=== PATIENT | male | born 2000 | race Caucasian/White ===

== ENCOUNTER 2022-03-22 09:28 | Inpatient (IN) | payer OTHER, SELFPAY ==
[2022-03-22] VITALS (9 sets, daily range): BP systolic 127–146; BP diastolic 58–85; PULSE 80–115; RESP 13–18; TEMP 36.6–37.4; O2SAT 97–100; BMI 21.2
[2022-03-22 10:38] LABS: MANUAL DIFF FLAG NO
[2022-03-22 10:39] LABS: Basophils Absolute Auto 0.1 X10*3/uL (0.0-0.2); Basophils Percent Auto 0.8 % (0-2); Eosinophils Absolute Auto 0.1 X10*3/uL (0.0-0.4); Eosinophils Percent Auto 0.8 % (0-4); Hemoglobin 8.8 g/dl (14.0-18.0); Imm Gran Abs Auto 0.05 X10*3/uL (0.00-0.03); Imm Gran Pct Auto 0.6 % (0.0-0.4); Lymphocytes Absolute Auto 1.1 X10*3/uL (1.2-4.9); Lymphocytes Percent Auto 12.3 % (20-40); Mean Corpuscular HGB Conc 33.8 g/dl (31.0-36.0); Mean Corpuscular Hemoglobin 30.9 pg (27.0-33.0); Mean Corpuscular Volume 91.2 fL (80.0-98.0); Monocytes Absolute Auto 0.2 X10*3/uL (0.1-1.2); Monocytes Percent Auto 2.5 % (2-11); Neutrophils Absolute Auto 7.5 x10*3/uL (2.0-8.3); Platelet Count 273 X10*3/uL (160-400); Red Blood Count 2.85 X10*6/uL (4.60-5.80); Red Cell Distribution Width 12.3 % (11.0-16.0); White Blood Count 9.1 X10*3/uL (4.8-10.8)
[2022-03-22 11:05] LABS: Anion Gap 13 (12-20); Blood Urea Nitrogen 25 mg/dL (9-16); Calcium 8.5 mg/dL (8.4-10.2); Carbon Dioxide 25 mmol/L (22-29); Chloride 108 mmol/L (96-108); Estimated Glomerular Filt Rate > 60; Glucose Random 110 mg/dL (60-115); Potassium 4.7 mmol/L (3.3-5.1); Sodium 141 mmol/L (135-145)
--- NOTE | 2022-03-22 11:33 | ECG_ITS ---
Test Reason : GI BLEED Blood Pressure : / mmHG Vent. Rate : 077 BPM Atrial Rate : 077 BPM P-R Int : 122 ms QRS Dur : 106 ms QT Int : 382 ms P-R-T Axes : 064 055 042 degrees QTc Int : 432 ms Sinus rhythm with marked sinus arrhythmia Otherwise normal ECG No previous ECGs available Referred By: Lidia Wood Electronically Signed By:ANTOINETTE MATHEWS
--- NOTE | 2022-03-22 11:44 | ED.GENADULT ---
HPI - General Adult General Chief complaint: Nausea/Vomiting/Diarrhea Stated complaint: blood in vomit, lightheaded. Time Seen by Provider: 03/22/22 11:31 Source: patient Mode of arrival: ambulatory History of Present Illness HPI narrative: 22-year-old male with no significant past medical history presenting to the ED complaining black stool since Wednesday and 1 episode black/coffee-ground emesis this morning. Reports associated generalized fatigue/weakness, lightheadedness and presyncope. Denies taking anticoagulation. Does report regular NSAID use, and binge purging, and occasional/social ETOH, denies being daily drinker. Reports mild abdominal discomfort. Denies diarrhea, dysuria/hematuria, CP/SOB Onset (ago): day(s) Related Data Allergies Allergy/AdvReac Type Severity Reaction Status Date / Time No Known Allergies Allergy Verified 03/22/22 10:12 Review of Systems Review of Systems: Constitutional: No Fever, No Chills, No Fatigue, No Malaise ENT/Mouth: No Ear Pain, No Nasal Congestion, No sore throat, No Rhinorrhea, No Swallowing Difficulty Eyes: No Eye Pain, No Swelling, No Redness, No Discharge, No Vision Changes Cardiovascular: No Chest Pain, No SOB, No Edema, No Palpitations Respiratory: No Cough, No Sputum, No Dyspnea Gastrointestinal: + Nausea, + Vomiting, No Diarrhea, No Constipation, + Abdominal pain, No Hematochezia, + Melena Genitourinary: No irregular bleeding, No Dysuria, No Urinary Frequency, No Hematuria, No Urinary Incontinence/retention, No Flank Pain Musculoskeletal: No joint pain, No Myalgias, No Joint Swelling Skin: No Skin Lesions, No rash Neuro: No Weakness, + lightheadedness/ Dizziness, No Headache Yes all other systems are reviewed and are negative Constitutional: Constitutional: Reports as per [facility] Past Medical History Attestation statement: The following information was validated with the patient. Physical Exam ED Vital Signs: Vital Signs - 24 hr 03/22/22 10:15 03/22/22 12:54 Temperature 97.9 F 98.2 F Pulse Rate 115 H 82 Respiratory Rate 14 13 Blood Pressure 132/85 145/70 H Pulse Oximetry 97 100 Oxygen Delivery Method Room Air Room Air BMI result Body Mass Index 21.2 Const Other: Pale General: cooperative, healthy appearing and no acute distress Nutritional Appearance: average body habitus Orientation/consciousness: patient oriented x3 Limitations: no limitations HENMT Head: Yes normal to inspection and Yes atraumatic Ears: hearing grossly normal bilaterally General nose exam: Normal external nose present Face and sinus: Yes normal facial exam Eyes General: appearance normal, both eyes and all related structures EOM: EOMs intact bilaterally Neck Neck: Yes normal visual inspection and Yes no meningeal signs Resp Effort & Inspection: normal respiratory effort and no respiratory distress Auscultation: clear to auscultation bilaterally Cardio Rate: regular rate Heart sounds: S1 normal heart sound present and S2 normal heart sound present GI Inspection: Yes normal to inspection Palpation (GI): Soft to palpation, nontender, no guarding and not rigid Rectal Exam - Male: No External hemorrhoid(s) present and No Internal hemorrhoid(s) present General: Yes no CVA tenderness Back/Spine/Pelvis Back: no CVA tenderness Skin Rashes: no rashes Wounds: no wounds Neuro General: patient oriented x3, tone normal, moves all extremities, no meningeal signs, no focal motor deficits and CN's II-XI intact bilaterally Gait exam (Neuro): Normal gait present Extrem General: Yes normal to inspection Course Course Course Narrative: 1150--no leukocytosis. Notably anemic at 8.8/26 no available priors, BUN elevated to 25 > blood consent signed and in patient's chart will obtain repeat 2 hour CBC -1259--vital signs stabilized, 2 hour repeat H&H stable at 8 0.9/26.1. Mild leukocytosis of 12.8 likely reactive from nausea/vomiting > will consult GI Dr. Andersen and plan for admission Spoke with Dr. Andersen recommended PPI, IVF, and NPO after midnight for likely EGD tomorrow pending clinical status Patient admitted for further management Medical Decision Making [facility] Narrative Medical decision making narrative: 22-year-old male with no significant past medical history presenting to the ED complaining black stool since Wednesday and 1 episode black/coffee-ground emesis this morning. Reports associated generalized fatigue/weakness, lightheadedness and presyncope. On exam tachycardic, afebrile, pale, abdomen soft/nontender. Concern for UGIB secondary to NSAID use/purging/[place] tear. Low suspicion for Boerhaave syndrome. Lower concern for lower GI bleed, appendicitis, diverticulitis, pancreatitis or cholecystitis Plan: EKG, labs, UA, IV Protonix, anticipated admission Medical Records Medical records reviewed: Yes I reviewed the patient's medical records. Lab Data Lab results reviewed: Yes I reviewed the patient's lab results. Result diagrams: 03/22/22 12:30 03/22/22 10:33 Labs: Lab Results 03/22/22 03/22/22 03/22/22 Range/Units 10:33 10:34 11:57 WBC 9.1 (4.8-10.8) X10*3/uL RBC 2.85 L (4.60-5.80) X10*6/uL Hgb 8.8 L (14.0-18.0) g/dl Hct 26.0 L (42.0-52.0) % MCV 91.2 (80.0-98.0) fL MCH 30.9 (27.0-33.0) pg MCHC 33.8 (31.0-36.0) g/dl RDW 12.3 (11.0-16.0) % Plt Count 273 (160-400) X10*3/uL MPV 11.0 (9.4-12.4) fL Immature Gran % (Auto) 0.6 H (0.0-0.4) % Neut % (Auto) 83.0 H (45-73) % Lymph % (Auto) 12.3 L (20-40) % [place] % (Auto) 2.5 (2-11) % Eos % (Auto) 0.8 (0-4) % Baso % (Auto) 0.8 (0-2) % Lymph # (Auto) 1.1 L (1.2-4.9) X10*3/uL [place] # (Auto) 0.2 (0.1-1.2) X10*3/uL Eos # (Auto) 0.1 (0.0-0.4) X10*3/uL Baso # (Auto) 0.1 (0.0-0.2) X10*3/uL Abs Immat Gran (auto) 0.05 H (0.00-0.03) X10*3/uL Absolute Neuts (auto) 7.5 (2.0-8.3) x10*3/uL Absolute Nucleated RBC 0.000 (0.0-0.012) X10*3/uL Nucleated RBC % (auto) 0.0 (0.0-0.2) /100WBC Sodium 141 (135-145) mmol/L Potassium 4.7 (3.3-5.1) mmol/L Chloride 108 (96-108) mmol/L Carbon Dioxide 25 (22-29) mmol/L Anion Gap 13 (12-20) BUN 25 H (9-16) mg/dL Creatinine 0.76 (0.5-1.4) mg/dL Estim Creat Clear Calc 160.0 Estimated GFR > 60 Random Glucose 110 (60-115) mg/dL Calcium 8.5 (8.4-10.2) mg/dL Magnesium 1.8 (1.6-2.6) mg/dL Iron 130 (45-160) mcg/dL TIBC 360 (228-428) mcg/dL % Saturation 36 (15-50) % Unsat Iron Binding 230 ug/dL Total Bilirubin 0.3 (0.0-1.0) mg/dL Direct Bilirubin < 0.2 (0.0-0.5) mg/dL AST 13 (5-37) U/L ALT 16 (0-40) U/L Alkaline Phosphatase 67 (39-117) U/L Total Protein 5.9 L (6.5-8.0) g/dL Albumin 4.0 (3.5-5.0) g/dL Lipase 16 (8-78) U/L Stool Occult Blood NEGATIVE (NEGATIVE) COVID-19 ([facility]) (Negative) COVID-19 Clin Com Blood Type Antibody Screen 03/22/22 03/22/22 03/22/22 Range/Units 12:08 12:30 12:36 WBC 12.8 H (4.8-10.8) X10*3/uL RBC 2.86 L (4.60-5.80) X10*6/uL Hgb 8.9 L (14.0-18.0) g/dl Hct 26.1 L (42.0-52.0) % MCV 91.3 (80.0-98.0) fL MCH 31.1 (27.0-33.0) pg MCHC 34.1 (31.0-36.0) g/dl RDW 12.3 (11.0-16.0) % Plt Count 249 (160-400) X10*3/uL MPV 11.3 (9.4-12.4) fL Immature Gran % (Auto) 0.6 H (0.0-0.4) % Neut % (Auto) 88.8 H (45-73) % Lymph % (Auto) 7.8 L (20-40) % [place] % (Auto) 2.1 (2-11) % Eos % (Auto) 0.2 (0-4) % Baso % (Auto) 0.5 (0-2) % Lymph # (Auto) 1.0 L (1.2-4.9) X10*3/uL [place] # (Auto) 0.3 (0.1-1.2) X10*3/uL Eos # (Auto) 0.0 (0.0-0.4) X10*3/uL Baso # (Auto) 0.1 (0.0-0.2) X10*3/uL Abs Immat Gran (auto) 0.08 H (0.00-0.03) X10*3/uL Absolute Neuts (auto) 11.4 H (2.0-8.3) x10*3/uL Absolute Nucleated RBC 0.000 (0.0-0.012) X10*3/uL Nucleated RBC % (auto) 0.0 (0.0-0.2) /100WBC Sodium (135-145) mmol/L Potassium (3.3-5.1) mmol/L Chloride (96-108) mmol/L Carbon Dioxide (22-29) mmol/L Anion Gap (12-20) BUN (9-16) mg/dL Creatinine (0.5-1.4) mg/dL Estim Creat Clear Calc Estimated GFR Random Glucose (60-115) mg/dL Calcium (8.4-10.2) mg/dL Magnesium (1.6-2.6) mg/dL Iron (45-160) mcg/dL TIBC (228-428) mcg/dL % Saturation (15-50) % Unsat Iron Binding ug/dL Total Bilirubin (0.0-1.0) mg/dL Direct Bilirubin (0.0-0.5) mg/dL AST (5-37) U/L ALT (0-40) U/L Alkaline Phosphatase (39-117) U/L Total Protein (6.5-8.0) g/dL Albumin (3.5-5.0) g/dL Lipase (8-78) U/L Stool Occult Blood (NEGATIVE) COVID-19 ([facility]) Negative (Negative) COVID-19 Clin Com See Note Blood Type O Positive Antibody Screen NEGATIVE ECG Data Attestation: I personally reviewed and interpreted this ECG as follows: Prior ECG tracings: not available for review Interpretation: EKG normal sinus rhythm with sinus arrhythmia at a rate of 77. QTC 432. No STEMI. Discharge Plan Discharge Clinical Impression: UGIB (upper gastrointestinal bleed) Patient Disposition: Admitted As Inpatient
[2022-03-22 12:02] LABS: OBS Int Ctl Valid YES; OBS1 NEGATIVE (NEGATIVE)
[2022-03-22 12:37] LABS: Alanine Aminotransferase 16 U/L (0-40); Alkaline Phosphatase 67 U/L (39-117); Aspartate Amino Transferase 13 U/L (5-37); Bilirubin Direct < 0.2 mg/dL (0.0-0.5); Bilirubin Total 0.3 mg/dL (0.0-1.0); Iron 130 mcg/dL (45-160); Lipase 16 U/L (8-78); Magnesium 1.8 mg/dL (1.6-2.6); Percent Iron Saturation 36 % (15-50); Total Iron Binding Capacity 360 mcg/dL (228-428); Total Protein 5.9 g/dL (6.5-8.0); Unsaturated Iron Binding 230 ug/dL
[2022-03-22 12:38] LABS: MANUAL DIFF FLAG NO
[2022-03-22 12:42] LABS: Basophils Absolute Auto 0.1 X10*3/uL (0.0-0.2); Basophils Percent Auto 0.5 % (0-2); Eosinophils Percent Auto 0.2 % (0-4); Hematocrit 26.1 % (42.0-52.0); Hemoglobin 8.9 g/dl (14.0-18.0); Imm Gran Abs Auto 0.08 X10*3/uL (0.00-0.03); Imm Gran Pct Auto 0.6 % (0.0-0.4); Lymphocytes Percent Auto 7.8 % (20-40); Mean Corpuscular HGB Conc 34.1 g/dl (31.0-36.0); Mean Corpuscular Hemoglobin 31.1 pg (27.0-33.0); Mean Corpuscular Volume 91.3 fL (80.0-98.0); Mean Platelet Volume 11.3 fL (9.4-12.4); Monocytes Absolute Auto 0.3 X10*3/uL (0.1-1.2); Monocytes Percent Auto 2.1 % (2-11); Neutrophils Absolute Auto 11.4 x10*3/uL (2.0-8.3); Neutrophils Percent Auto 88.8 % (45-73); Platelet Count 249 X10*3/uL (160-400); Red Blood Count 2.86 X10*6/uL (4.60-5.80); Red Cell Distribution Width 12.3 % (11.0-16.0); White Blood Count 12.8 X10*3/uL (4.8-10.8)
[2022-03-22] MEDS: Pantoprazole Sodium 40 MG/10 ML VIAL IVPUSH (12:48)
[2022-03-22] MEDS: 0.9 % Sodium Chloride 1,000 ML 999 ML IV (12:48)
[2022-03-22 12:56] LABS: COVID-19 Test Negative (Negative)
[2022-03-22 13:20] LABS: Appearance Urine Clear; Color Urine Yellow; Glucose Urine UA Negative (Negative); Leukocyte Esterase Urine Negative (Negative); Nitrite Urine Negative (Negative); PH 8.5 (5.0-9.0); Specific Gravity - Urine 1.025 (1.005-1.025); Urine Blood Negative (Negative); Urine Ketones Negative (Negative); Urine Protein Negative (Neg-Trace)
--- NOTE | 2022-03-22 14:38 | PC.NURSE ---
Pt ambulated to bathroom with no issues, denies dizziness or SOB. Complained of nausea with no vomiting. PT made aware of NPO status.
--- NOTE | 2022-03-22 14:45 | P.HPHOSP_ITS ---
History of Present Illness Date of Service: 03/22/22 Chief Complaint: VOmiting Blood 22-year-old male with no significant past medical history presenting to the ED complaining black stool since Wednesday and 1 episode black/coffee-ground emesis this morning.? Reports associated generalized fatigue/weakness, lightheadedness and presyncope.? Denies taking anticoagulation.? Does report regular NSAID use, and binge purging, and occasional/social ETOH, denies being daily drinker.? Reports mild abdominal discomfort.? Denies diarrhea, dysuria/hematuria, CP/SOB. Review of Systems Review of Systems: denies chest pain Denies shortness of breath Admits to vomiting coffee-ground emesis and dark tarry stools Denies fever chills PMFSH Social History Advance Directives: No Advance Directives Information Provided: Yes Meds Allergies Allergy/AdvReac Type Severity Reaction Status Date / Time Seasonal Allergies Allergy Mild Watery Eye Verified 03/22/22 13:36 Active Medications: Current Medications Dextrose/Sodium Chloride (D51/2ns) 1,000 mls @ 100 mls/hr IVCONT .Q10H [facility] Pantoprazole Sodium (Pantoprazole Sodium 40 Mg/10 Ml Vial) 40 mg IVPUSH Q12H [facility] Pharmacy Consult (Consult Rx Perform Med Rec) 1 each MISCELLANE ONCE PRN PRN Reason: Consult order Sodium Chloride (0.9 % Sodium Chloride Flush 3 Ml Syringe) 3 ml IVFLUSH QSHIFT [facility] Home Medications Medication Instructions Recorded Confirmed Last Taken Type ibuprofen 200 mg tablet 400 mg PO Q8H PRN Headache 03/22/22 03/22/22 03/21/22 History Physical Exam Vital Signs and Narrative: Vital Signs: Last Vital Signs Temp 98 F 03/22/22 14:29 Pulse 96 03/22/22 13:42 Resp 13 03/22/22 14:29 BP 142/70 H 03/22/22 14:29 Pulse Ox 100 03/22/22 14:29 O2 Del Method 03/22/22 14:29 BMI result Body Mass Index 21.2 Results Labs CBC and Chem 7: 03/22/22 12:30 03/22/22 10:33 Labs: Laboratory Results - last 24 hr 03/22/22 03/22/22 03/22/22 10:33 10:34 11:57 MCV 91.2 MCH 30.9 MCHC 33.8 RDW 12.3 Plt Count 273 MPV 11.0 Immature Gran % (Auto) 0.6 H Neut % (Auto) 83.0 H Lymph % (Auto) 12.3 L [place] % (Auto) 2.5 Eos % (Auto) 0.8 Baso % (Auto) 0.8 Lymph # (Auto) 1.1 L [place] # (Auto) 0.2 Eos # (Auto) 0.1 Baso # (Auto) 0.1 Abs Immat Gran (auto) 0.05 H Absolute Neuts (auto) 7.5 Absolute Nucleated RBC 0.000 Nucleated RBC % (auto) 0.0 Anion Gap 13 Estim Creat Clear Calc 160.0 Estimated GFR > 60 Random Glucose 110 Calcium 8.5 Magnesium 1.8 Iron 130 TIBC 360 % Saturation 36 Unsat Iron Binding 230 Total Bilirubin 0.3 Direct Bilirubin < 0.2 AST 13 ALT 16 Alkaline Phosphatase 67 Total Protein 5.9 L Albumin 4.0 Lipase 16 Urine Color Urine Appearance Urine pH Ur Specific [place] Urine Protein Urine Glucose (UA) Urine Ketones Urine Blood Urine Nitrite Ur Leukocyte Esterase Stool Occult Blood NEGATIVE COVID-19 ([facility]) COVID-19 Clin Com Blood Type Antibody Screen 03/22/22 03/22/22 03/22/22 12:08 12:30 12:36 MCV 91.3 MCH 31.1 MCHC 34.1 RDW 12.3 Plt Count 249 MPV 11.3 Immature Gran % (Auto) 0.6 H Neut % (Auto) 88.8 H Lymph % (Auto) 7.8 L [place] % (Auto) 2.1 Eos % (Auto) 0.2 Baso % (Auto) 0.5 Lymph # (Auto) 1.0 L [place] # (Auto) 0.3 Eos # (Auto) 0.0 Baso # (Auto) 0.1 Abs Immat Gran (auto) 0.08 H Absolute Neuts (auto) 11.4 H Absolute Nucleated RBC 0.000 Nucleated RBC % (auto) 0.0 Anion Gap Estim Creat Clear Calc Estimated GFR Random Glucose Calcium Magnesium Iron TIBC % Saturation Unsat Iron Binding Total Bilirubin Direct Bilirubin AST ALT Alkaline Phosphatase Total Protein Albumin Lipase Urine Color Urine Appearance Urine pH Ur Specific [place] Urine Protein Urine Glucose (UA) Urine Ketones Urine Blood Urine Nitrite Ur Leukocyte Esterase Stool Occult Blood COVID-19 ([facility]) Negative COVID-19 Clin Com See Note Blood Type O Positive Antibody Screen NEGATIVE 03/22/22 13:09 MCV MCH MCHC RDW Plt Count MPV Immature Gran % (Auto) Neut % (Auto) Lymph % (Auto) [place] % (Auto) Eos % (Auto) Baso % (Auto) Lymph # (Auto) [place] # (Auto) Eos # (Auto) Baso # (Auto) Abs Immat Gran (auto) Absolute Neuts (auto) Absolute Nucleated RBC Nucleated RBC % (auto) Anion Gap Estim Creat Clear Calc Estimated GFR Random Glucose Calcium Magnesium Iron TIBC % Saturation Unsat Iron Binding Total Bilirubin Direct Bilirubin AST ALT Alkaline Phosphatase Total Protein Albumin Lipase Urine Color Yellow Urine Appearance Clear Urine pH 8.5 Ur Specific [place] 1.025 Urine Protein Negative Urine Glucose (UA) Negative Urine Ketones Negative Urine Blood Negative Urine Nitrite Negative Ur Leukocyte Esterase Negative Stool Occult Blood COVID-19 ([facility]) COVID-19 Clin Com Blood Type Antibody Screen Assessment and Plan (1) UGIB (upper gastrointestinal bleed): Status: Acute Plan 22-year-old male presents with several days of coffee-ground emesis and black stool. Admits to daily NSAID use secondary to chronic headaches. Also admits purging. . . Has counselor for same. No suicidal ideations 1.UGIB - will keep NPO - IV pantoprazole q.12 hours - ER discussed with GI ... likely EGD the morning full code ambulation will require at least 2 midnights going forward for IV PPI and diagnostic EGD to discern cause for GI bleed Quality Stroke Does the patient have a stroke diagnosis?: No VTE Prior VTE?: No VTE Risk Level:: Medical - low VTE Device Contraindication: Treatment Not Indicated VTE Drug Contraindication: Treatment Not Indicated
[2022-03-22] MEDS: Dextrose 5 % and 0.45 % NaCl 1,000 ML 100 ML IVCONT (15:25)
[2022-03-22 18:39] LABS: MANUAL DIFF FLAG NO
[2022-03-22 18:40] LABS: Basophils Percent Auto 0.4 % (0-2); Eosinophils Percent Auto 0.1 % (0-4); Hematocrit 21.7 % (42.0-52.0); Hemoglobin 7.5 g/dl (14.0-18.0); Imm Gran Abs Auto 0.03 X10*3/uL (0.00-0.03); Imm Gran Pct Auto 0.3 % (0.0-0.4); Lymphocytes Absolute Auto 2.2 X10*3/uL (1.2-4.9); Lymphocytes Percent Auto 20.8 % (20-40); Mean Corpuscular HGB Conc 34.6 g/dl (31.0-36.0); Mean Corpuscular Hemoglobin 31.3 pg (27.0-33.0); Mean Corpuscular Volume 90.4 fL (80.0-98.0); Mean Platelet Volume 10.7 fL (9.4-12.4); Monocytes Absolute Auto 0.4 X10*3/uL (0.1-1.2); Monocytes Percent Auto 3.8 % (2-11); Neutrophils Absolute Auto 7.9 x10*3/uL (2.0-8.3); Neutrophils Percent Auto 74.6 % (45-73); Platelet Count 212 X10*3/uL (160-400); Red Cell Distribution Width 12.4 % (11.0-16.0); White Blood Count 10.6 X10*3/uL (4.8-10.8)
[2022-03-22] MEDS: Zolpidem Tartrate 5 MG TABLET PO (20:45)
--- NOTE | 2022-03-22 20:54 | PC.NURSE ---
Report given to the receiving RN on Med surg.
[2022-03-22] MEDS: 0.9 % Sodium Chloride Flush 3 ML SYRINGE IVFLUSH (21:35)
[2022-03-23] VITALS (8 sets, daily range): BP systolic 117–136; BP diastolic 53–67; PULSE 67–94; RESP 16–20; TEMP 36.4–37.1; O2SAT 97–100
[2022-03-23] MEDS: Pantoprazole Sodium 40 MG/10 ML VIAL IVPUSH ×2 (00:56→12:55)
[2022-03-23] MEDS: Dextrose 5 % and 0.45 % NaCl 1,000 ML 100 ML IVCONT ×3 (00:56→21:01)
[2022-03-23 06:25] LABS: MANUAL DIFF FLAG NO
[2022-03-23 06:27] LABS: Basophils Percent Auto 0.6 % (0-2); Eosinophils Absolute Auto 0.1 X10*3/uL (0.0-0.4); Eosinophils Percent Auto 1.5 % (0-4); Hematocrit 21.4 % (42.0-52.0); Hemoglobin 7.3 g/dl (14.0-18.0); Imm Gran Abs Auto 0.03 X10*3/uL (0.00-0.03); Imm Gran Pct Auto 0.5 % (0.0-0.4); Lymphocytes Absolute Auto 1.8 X10*3/uL (1.2-4.9); Mean Corpuscular HGB Conc 34.1 g/dl (31.0-36.0); Mean Corpuscular Hemoglobin 31.3 pg (27.0-33.0); Mean Corpuscular Volume 91.8 fL (80.0-98.0); Mean Platelet Volume 11.9 fL (9.4-12.4); Monocytes Absolute Auto 0.4 X10*3/uL (0.1-1.2); Monocytes Percent Auto 5.4 % (2-11); Neutrophils Absolute Auto 4.2 x10*3/uL (2.0-8.3); Platelet Count 222 X10*3/uL (160-400); Red Blood Count 2.33 X10*6/uL (4.60-5.80); Red Cell Distribution Width 12.8 % (11.0-16.0); White Blood Count 6.5 X10*3/uL (4.8-10.8)
--- NOTE | 2022-03-23 06:36 | PM.GICN ---
History of Present Illness Data of Consult Service Date: 03/23/22 Requesting physician: Benigno Bee Primary Care Provider: None Physician HPI Reason for consult: melena 22-year-old male with no significant past medical history who I am seeing for assessment for acute blood loss anemia He noted one week of black stools with fatigue and light headedness. Yesterday he had one episode of vomiting blackish emesis. He denies SOB, no abdominal pain or chest pain. No fevers or chills, never had this before. 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 He takes nsaids on regular basis, ibuprofen--uncertain of dose. Review of Systems Review of Systems: Constitutional : No Weight loss, No Fever, No Chills ENT/Mouth : No sore throat, No Rhinorrhea Eyes: No Swelling, No Redness Cardiovascular : No Chest Pain, No SOB, No Edema Respiratory : No Cough, No Sputum, No Wheezing Gastrointestinal : see HPI Genitourinary : NO Dysuria, No Urinary Frequency, No Hematuria, No Urgency Musculoskeletal : No joint pain, No Myalgias, No Joint Swelling Skin : No Skin Lesions, No rash Neuro : No Weakness, No Numbness, No Dizziness, No Headache at this time Psych : No Anxiety/Panic, No Depression Heme/Lymph: No Bruising, No Lymphadenopathy Endocrine : No Polyuria, No Polydipsia All other systems reviewed and are negative. Yes all other systems are reviewed and are negative Constitutional: Constitutional: Reports as per HPI [facility] Family History Family history: reviewed and not pertinent (adopted, FH not known) Social History Social History Household Members: Significant Other Housing: House Do you presently have visiting nurse or other home services: No Patient Tobacco Use Status: Former Tobacco user Substance Use Type: Marijuana service: No Current occupational status: unemployed Meds Allergies Allergy/AdvReac Type Severity Reaction Status Date / Time Seasonal Allergies Allergy Mild Watery Eye Verified 03/22/22 13:36 Active Medications: Current Medications Dextrose/Sodium Chloride (D51/2ns) 1,000 mls @ 100 mls/hr IVCONT .Q10H [facility] Last Admin: 03/23/22 00:56 Dose: 100 mls/hr Pantoprazole Sodium (Pantoprazole Sodium 40 Mg/10 Ml Vial) 40 mg IVPUSH Q12H [facility] Last Admin: 03/23/22 00:56 Dose: 40 mg Pharmacy Consult (Consult Rx Perform Med Rec) 1 each MISCELLANE ONCE PRN PRN Reason: Consult order Sodium Chloride (0.9 % Sodium Chloride Flush 3 Ml Syringe) 3 ml IVFLUSH QSHIFT [facility] Last Admin: 03/22/22 21:35 Dose: 3 ml Home Medications Medication Instructions Recorded Confirmed Last Taken Type ibuprofen 200 mg tablet 400 mg PO Q8H PRN Headache 03/22/22 03/22/22 03/21/22 History Physical Exam Vital Signs: Vital Signs: Last Vital Signs Temp 97.8 F 03/23/22 04:00 Pulse 78 03/23/22 04:00 Resp 17 03/23/22 04:00 BP 125/59 L 03/23/22 04:00 Pulse Ox 100 03/23/22 04:00 O2 Del Method 03/23/22 04:00 BMI result Body Mass Index 21.2 Const: Other: Pale General: cooperative, healthy appearing and no acute distress Nutritional Appearance: average body habitus Orientation/consciousness: patient oriented x3 Limitations: no limitations HEENT: Head: Yes normal to inspection and Yes atraumatic Ears: hearing grossly normal bilaterally General nose exam: Normal external nose present Face and sinus: Yes normal facial exam Eyes: General: appearance normal, both eyes and all related structures EOM: EOMs intact bilaterally Neck: Neck: Yes normal visual inspection and Yes no meningeal signs Resp: Effort & Inspection: normal respiratory effort and no respiratory distress Auscultation: clear to auscultation bilaterally Cardio: Rate: regular rate Heart sounds: S1 normal heart sound present and S2 normal heart sound present GI: Inspection: Yes normal to inspection Palpation (GI): Soft to palpation, nontender, no guarding and not rigid Rectal Exam - Male: No External hemorrhoid(s) present and No Internal hemorrhoid(s) present : General: Yes no CVA tenderness Back/Spine/Pelvis: Back: no CVA tenderness Skin: Rashes: no rashes Wounds: no wounds Neuro: General: patient oriented x3, tone normal, moves all extremities, no meningeal signs, no focal motor deficits and CN's II-XI intact bilaterally Gait exam (Neuro): Normal gait present Extrem: General: Yes normal to inspection Psych: Appearance: grossly normal Results Labs CBC & Chem 7: 03/23/22 05:46 03/23/22 05:45 Labs: Short CBC 03/22/22 03/22/22 03/22/22 Range/Units 10:34 12:30 18:35 WBC 9.1 12.8 H 10.6 (4.8-10.8) X10*3/uL Hgb 8.8 L 8.9 L 7.5 L (14.0-18.0) g/dl Hct 26.0 L 26.1 L 21.7 L (42.0-52.0) % Plt Count 273 249 212 (160-400) X10*3/uL 03/23/22 Range/Units 05:46 WBC 6.5 (4.8-10.8) X10*3/uL Hgb 7.3 L (14.0-18.0) g/dl Hct 21.4 L (42.0-52.0) % Plt Count 222 (160-400) X10*3/uL BMP 03/22/22 10:33 Sodium 141 Potassium 4.7 Chloride 108 Carbon Dioxide 25 BUN 25 H Creatinine 0.76 Calcium 8.5 Liver Function 03/22/22 Range/Units 10:33 Total Bilirubin 0.3 (0.0-1.0) mg/dL Direct Bilirubin < 0.2 (0.0-0.5) mg/dL AST 13 (5-37) U/L ALT 16 (0-40) U/L Alkaline Phosphatase 67 (39-117) U/L Albumin 4.0 (3.5-5.0) g/dL Urine 03/22/22 Range/Units 13:09 Urine Color Yellow Urine Appearance Clear Urine pH 8.5 (5.0-9.0) Ur Specific [place] 1.025 (1.005-1.025) Urine Protein Negative (Neg-Trace) mg/dL Urine Glucose (UA) Negative (Negative) mg/dL Assessment and Plan (1) UGIB (upper gastrointestinal bleed): Status: Acute Plan 1/ Acute blood loss anemia, with melena, probably peptic ulcer from stress and nsaid use PLAN: 1/ cont with PPI 2/ EGd today for further assessment 3/ transfuse for HGB around 7-8 g/dl Procedures Date of Service Date of Service: 03/23/22
[2022-03-23 06:44] LABS: Alanine Aminotransferase 14 U/L (0-40); Albumin Level 3.7 g/dL (3.5-5.0); Alkaline Phosphatase 55 U/L (39-117); Anion Gap 13 (12-20); Aspartate Amino Transferase 11 U/L (5-37); Bilirubin Total 0.5 mg/dL (0.0-1.0); Blood Urea Nitrogen 16 mg/dL (9-16); Calcium 8.7 mg/dL (8.4-10.2); Carbon Dioxide 24 mmol/L (22-29); Chloride 108 mmol/L (96-108); Creatinine Clr Calc Pharmacy 148.3; Estimated Glomerular Filt Rate > 60; Glucose Fasting 94 mg/dL (60-99); Potassium 3.6 mmol/L (3.3-5.1); Sodium 141 mmol/L (135-145); Total Protein 5.5 g/dL (6.5-8.0)
[2022-03-23] MEDS: 0.9 % Sodium Chloride Flush 3 ML SYRINGE IVFLUSH ×2 (08:06→16:29)
--- NOTE | 2022-03-23 08:37 | MHC.SHP ---
Pre-Procedural Eval Section A Date of Service: 03/23/22 The patient is an INPATIENT: Yes The History & Physical has been completed within 30 days and I have reviewed it.: Yes Section B Chief Complaint: GI Bleed Allergies: Allergies Allergy/AdvReac Type Severity Reaction Status Date / Time Seasonal Allergies Allergy Mild Watery Eye Verified 03/22/22 13:36 Plan Diagnosis/Plan: Unchanged I have reviewed the history and physical and performed a pertinent physical examination on my patient. No changes have occurred unless specified.
[2022-03-23] MEDS: Morphine Sulfate 2 MG/ML CARTRIDGE IVPUSH (10:43)
--- NOTE | 2022-03-23 10:54 | MHC.CM.PN ---
PT REPORTS HE LIVES WITH HIS S/O AND IS INDEPENDENT WITH CARE PT DENIES USE OF DME OR HOME SERVICES PT DECLINES TO COMPLETE A HCP PT REPORTS HE IS NOT COVID VACCINATED PT DOES NOT HAVE A PCP, HE IS INTERESTED IN SEEING SOMEONE AT [facility] DCP: HOME NO SERVICES PT TO ARRANGE TRANSPORT
--- NOTE | 2022-03-23 11:32 | W.PM.OPN ---
Operative Note Operative Note Date of Service: 03/23/22 Narrative: Procedure Description: EGD Indication: acute blood loss anemia, melena Anesthesia: MAC FLEXIBLE TRANSORAL UPPER GASTROINTESTINAL ENDOSCOPY UPPER ENDOSCOPY Consent: Indications for the procedure and potential complications of bleeding, perforation, reaction to medications and missed diagnosis were discussed with the patient and informed consent was obtained. Instrument: Olympus GIF H 190 J mid size upper endoscope Monitoring: Vital signs and clinical assessment, continuous EKG monitoring, Pulse oximetry, Carbon Dioxide monitoring and blood pressure monitoring were done throughout the procedure. Procedure: The patient was placed in the left lateral decubitis position and pre-procedure medications were administered and a bite block was placed. The endoscope was inserted into the mouth and advanced under direct vision to the third part of duodenum. A careful inspection was made as the upper endoscope was withdrawn including a retroflexed examination of the proximal stomach; Findings and interventions are described below. Findings: Larynx:normal Esophagus: GE junction at 38 cm, diaphragm hiatus at 40 cm, consistent with 2 cm hiatal hernia, also non obstructive schatzki ring noted consistent with chronic reflux. Stomach: Pallor noted. Biopsies were obtained to r/o h pylori. Grade 2 flap valve on retroflexed examination of the cardia. No blood noted Duodenum: duodenal bulb erythema with few erosions. At the duodenal sweep a 10 mm ulcer noted with no active bleeding, West grade III (<5% chance of re bleeding) Intervention: Biopsies as noted above Impression/Findings: hiatal hernia duodenitis and duodenal ulcer schatzki ring PLAN: avoid nsaids, can use tylenol also can use low dose TCA for his poor sleep and headaches can try nortriptiline 10 mg at night pantoprazole 40 mg OD for at least 3 months then can down titrate to 20 mg thereafter try to stop smoking cannabis stress reduction can have regular diet later tonight, home tonight or tomorrow morning if stable otherwise prep for colonoscopy
--- NOTE | 2022-03-23 11:57 | PC.NURSE ---
PT A/OX3 DENIES PAIN DRINKING WATER AWARE CAREPLAN LS CLEAR PWD
--- NOTE | 2022-03-23 12:43 | P.PNIM_ITS ---
Subjective Subjective Date of Service: 03/23/22 Interval History: results of EGD noted. Patient complains of dark stools but is asymptoma Review of Systems denies chest pain Denies shortness of breath Denies nausea vomiting diarrhea denies fever chills Physical Exam Vital Signs: Vital Signs: Last Vital Signs Temp 98 F 03/23/22 12:19 Pulse 76 03/23/22 12:19 Resp 16 03/23/22 12:19 BP 126/64 03/23/22 12:19 Pulse Ox 97 03/23/22 12:19 O2 Del Method 03/23/22 12:19 BMI result Body Mass Index 21.2 Const: Other: no acute distress Resp: Other: clear to auscultation bilaterally no rales rhonchi or wheezes Cardio: Other: no S4; positive S1-S2; no S3 murmurs rubs gallops GI: Other: soft nontender nondistended with normoactive bowel sounds Extrem: Other: no edema bilaterally Objective Data Active Medications Dextrose/Sodium Chloride (D51/2ns) 1,000 mls @ 100 mls/hr IVCONT .Q10H [facility] Last Admin: 03/23/22 09:57 Dose: 100 mls/hr Documented By: VERONICA Pantoprazole Sodium (Pantoprazole Sodium 40 Mg/10 Ml Vial) 40 mg IVPUSH Q12H [facility] Last Admin: 03/23/22 00:56 Dose: 40 mg Documented By: MIRZA Pharmacy Consult (Consult Rx Perform Med Rec) 1 each MISCELLANE ONCE PRN PRN Reason: Consult order Sodium Chloride (0.9 % Sodium Chloride Flush 3 Ml Syringe) 3 ml IVFLUSH QSHIFT [facility] Last Admin: 03/23/22 08:06 Dose: 3 ml Documented By: VERONICA Labs CBC & Chem 7: 03/23/22 05:46 03/23/22 05:45 Labs: Laboratory Results - last 24 hr 03/22/22 03/22/22 03/22/22 10:33 12:08 12:36 MCV MCH MCHC RDW Plt Count MPV Immature Gran % (Auto) Neut % (Auto) Lymph % (Auto) [place] % (Auto) Eos % (Auto) Baso % (Auto) Lymph # (Auto) [place] # (Auto) Eos # (Auto) Baso # (Auto) Abs Immat Gran (auto) Absolute Neuts (auto) Absolute Nucleated RBC Nucleated RBC % (auto) Anion Gap Estim Creat Clear Calc Estimated GFR Fasting Glucose Calcium Magnesium 1.8 Iron 130 TIBC 360 % Saturation 36 Unsat Iron Binding 230 Total Bilirubin 0.3 Direct Bilirubin < 0.2 AST 13 ALT 16 Alkaline Phosphatase 67 Total Protein 5.9 L Albumin 4.0 Lipase 16 Urine Color Urine Appearance Urine pH Ur Specific [place] Urine Protein Urine Glucose (UA) Urine Ketones Urine Blood Urine Nitrite Ur Leukocyte Esterase COVID-19 ([facility]) Negative COVID-19 Clin Com See Note Blood Type O Positive Antibody Screen NEGATIVE 03/22/22 03/22/22 03/23/22 13:09 18:35 05:45 MCV 90.4 MCH 31.3 MCHC 34.6 RDW 12.4 Plt Count 212 MPV 10.7 Immature Gran % (Auto) 0.3 Neut % (Auto) 74.6 H Lymph % (Auto) 20.8 [place] % (Auto) 3.8 Eos % (Auto) 0.1 Baso % (Auto) 0.4 Lymph # (Auto) 2.2 [place] # (Auto) 0.4 Eos # (Auto) 0.0 Baso # (Auto) 0.0 Abs Immat Gran (auto) 0.03 Absolute Neuts (auto) 7.9 Absolute Nucleated RBC 0.000 Nucleated RBC % (auto) 0.0 Anion Gap 13 Estim Creat Clear Calc 148.3 Estimated GFR > 60 Fasting Glucose 94 Calcium 8.7 Magnesium Iron TIBC % Saturation Unsat Iron Binding Total Bilirubin 0.5 Direct Bilirubin AST 11 ALT 14 Alkaline Phosphatase 55 Total Protein 5.5 L Albumin 3.7 Lipase Urine Color Yellow Urine Appearance Clear Urine pH 8.5 Ur Specific [place] 1.025 Urine Protein Negative Urine Glucose (UA) Negative Urine Ketones Negative Urine Blood Negative Urine Nitrite Negative Ur Leukocyte Esterase Negative COVID-19 ([facility]) COVID-19 Clin Com Blood Type Antibody Screen 03/23/22 05:46 MCV 91.8 MCH 31.3 MCHC 34.1 RDW 12.8 Plt Count 222 MPV 11.9 Immature Gran % (Auto) 0.5 H Neut % (Auto) 64.0 Lymph % (Auto) 28.0 [place] % (Auto) 5.4 Eos % (Auto) 1.5 Baso % (Auto) 0.6 Lymph # (Auto) 1.8 [place] # (Auto) 0.4 Eos # (Auto) 0.1 Baso # (Auto) 0.0 Abs Immat Gran (auto) 0.03 Absolute Neuts (auto) 4.2 Absolute Nucleated RBC 0.000 Nucleated RBC % (auto) 0.0 Anion Gap Estim Creat Clear Calc Estimated GFR Fasting Glucose Calcium Magnesium Iron TIBC % Saturation Unsat Iron Binding Total Bilirubin Direct Bilirubin AST ALT Alkaline Phosphatase Total Protein Albumin Lipase Urine Color Urine Appearance Urine pH Ur Specific [place] Urine Protein Urine Glucose (UA) Urine Ketones Urine Blood Urine Nitrite Ur Leukocyte Esterase COVID-19 ([facility]) COVID-19 Clin Com Blood Type Antibody Screen Assessment and Plan (1) UGIB (upper gastrointestinal bleed): Status: Acute (2) Anemia: Status: Acute Plan 22-year-old male presents with several days of coffee-ground emesis and black stool.? Admits to daily NSAID use secondary to chronic headaches.? Also admits purging. . .? Has counselor for same.? No suicidal ideations 1.UGIB - EGD reviewed - IV pantoprazole q.12 hours - advance diet 2.Anemia(asymptomatic) - IV infusion today - check CBC in a.m. - home on orals ?full code ?ambulation ?will require at least 2 midnights going forward for IV PPI and diagnostic EGD to discern cause for GI bleed Quality Stroke Does the patient have a stroke diagnosis?: No VTE Prior VTE?: No VTE Risk Level:: Medical - low VTE Device Contraindication: Treatment Not Indicated VTE Drug Contraindication: Treatment Not Indicated
--- NOTE | 2022-03-23 13:09 | HO.ANESPROP2 ---
HPI - Anesthesia Eval Consult details Narrative: 22-year-old otherwise healthy presenting for endoscopy due to upper GI bleed and melena. Last episode of vomiting was yesterday. Denies nausea or vomiting today. PMFSH Active Problems Active Problems: All Active Problems (Updated 03/23/22 @ 12:47 by Benigno Bee DO) Anemia (Acute) UGIB (upper gastrointestinal bleed) (Acute) Family History Family history of problems with anesthesia: Unobtainable (Patient is adopted) Surgical History History of Problems with Anesthesia: No Social History Social History Household Members: Significant Other Housing: House Do you presently have visiting nurse or other home services: No Patient Tobacco Use Status: Former Tobacco user Substance Use Type: Marijuana service: No Current occupational status: unemployed Meds Allergies Allergy/AdvReac Type Severity Reaction Status Date / Time Seasonal Allergies Allergy Mild Watery Eye Verified 03/22/22 13:36 Active Medications: Current Medications Dextrose/Sodium Chloride (D51/2ns) 1,000 mls @ 100 mls/hr IVCONT .Q10H [facility] Last Admin: 03/23/22 09:57 Dose: 100 mls/hr Pantoprazole Sodium (Pantoprazole Sodium 40 Mg/10 Ml Vial) 40 mg IVPUSH Q12H [facility] Last Admin: 03/23/22 12:55 Dose: 40 mg Pharmacy Consult (Consult Rx Perform Med Rec) 1 each MISCELLANE ONCE PRN PRN Reason: Consult order Sodium Chloride (0.9 % Sodium Chloride Flush 3 Ml Syringe) 3 ml IVFLUSH QSHIFT [facility] Last Admin: 03/23/22 08:06 Dose: 3 ml Home Medications Medication Instructions Recorded Confirmed Last Taken Type ibuprofen 200 mg tablet 400 mg PO Q8H PRN Headache 03/22/22 03/22/22 03/21/22 History Exam Exam Date and Time: March 23, 2022 1309 Height,Weight and Vital Signs: Height 6 ft 2 in Weight 165 lb Last Vital Signs Temp 98 F 03/23/22 12:19 Pulse 76 03/23/22 12:19 Resp 16 03/23/22 12:19 BP 126/64 03/23/22 12:19 Pulse Ox 97 03/23/22 12:19 O2 Del Method 03/23/22 12:19 Pertinent Lab Results Pertinent Lab Results: Laboratory Tests 03/22/22 03/22/22 03/22/22 10:33 10:34 11:57 WBC 9.1 RBC 2.85 L Hgb 8.8 L Hct 26.0 L MCV 91.2 MCH 30.9 MCHC 33.8 RDW 12.3 Plt Count 273 MPV 11.0 Immature Gran % (Auto) 0.6 H Neut % (Auto) 83.0 H Lymph % (Auto) 12.3 L [place] % (Auto) 2.5 Eos % (Auto) 0.8 Baso % (Auto) 0.8 Lymph # (Auto) 1.1 L [place] # (Auto) 0.2 Eos # (Auto) 0.1 Baso # (Auto) 0.1 Abs Immat Gran (auto) 0.05 H Absolute Neuts (auto) 7.5 Absolute Nucleated RBC 0.000 Nucleated RBC % (auto) 0.0 Sodium 141 Potassium 4.7 Chloride 108 Carbon Dioxide 25 Anion Gap 13 BUN 25 H Creatinine 0.76 Estim Creat Clear Calc 160.0 Estimated GFR > 60 Random Glucose 110 Fasting Glucose Calcium 8.5 Magnesium 1.8 Iron 130 TIBC 360 % Saturation 36 Unsat Iron Binding 230 Total Bilirubin 0.3 Direct Bilirubin < 0.2 AST 13 ALT 16 Alkaline Phosphatase 67 Total Protein 5.9 L Albumin 4.0 Lipase 16 Urine Color Urine Appearance Urine pH Ur Specific [place] Urine Protein Urine Glucose (UA) Urine Ketones Urine Blood Urine Nitrite Ur Leukocyte Esterase Stool Occult Blood NEGATIVE COVID-19 ([facility]) COVID-19 Clin [facility] Blood Type Antibody Screen 03/22/22 03/22/22 03/22/22 12:08 12:30 12:36 WBC 12.8 H RBC 2.86 L Hgb 8.9 L Hct 26.1 L MCV 91.3 MCH 31.1 MCHC 34.1 RDW 12.3 Plt Count 249 MPV 11.3 Immature Gran % (Auto) 0.6 H Neut % (Auto) 88.8 H Lymph % (Auto) 7.8 L [place] % (Auto) 2.1 Eos % (Auto) 0.2 Baso % (Auto) 0.5 Lymph # (Auto) 1.0 L [place] # (Auto) 0.3 Eos # (Auto) 0.0 Baso # (Auto) 0.1 Abs Immat Gran (auto) 0.08 H Absolute Neuts (auto) 11.4 H Absolute Nucleated RBC 0.000 Nucleated RBC % (auto) 0.0 Sodium Potassium Chloride Carbon Dioxide Anion Gap BUN Creatinine Estim Creat Clear Calc Estimated GFR Random Glucose Fasting Glucose Calcium Magnesium Iron TIBC % Saturation Unsat Iron Binding Total Bilirubin Direct Bilirubin AST ALT Alkaline Phosphatase Total Protein Albumin Lipase Urine Color Urine Appearance Urine pH Ur Specific [place] Urine Protein Urine Glucose (UA) Urine Ketones Urine Blood Urine Nitrite Ur Leukocyte Esterase Stool Occult Blood COVID-19 ([facility]) Negative COVID-19 Clin Com See Note Blood Type O Positive Antibody Screen NEGATIVE 03/22/22 03/22/22 03/23/22 13:09 18:35 05:45 WBC 10.6 RBC 2.40 L Hgb 7.5 L Hct 21.7 L MCV 90.4 MCH 31.3 MCHC 34.6 RDW 12.4 Plt Count 212 MPV 10.7 Immature Gran % (Auto) 0.3 Neut % (Auto) 74.6 H Lymph % (Auto) 20.8 [place] % (Auto) 3.8 Eos % (Auto) 0.1 Baso % (Auto) 0.4 Lymph # (Auto) 2.2 [place] # (Auto) 0.4 Eos # (Auto) 0.0 Baso # (Auto) 0.0 Abs Immat Gran (auto) 0.03 Absolute Neuts (auto) 7.9 Absolute Nucleated RBC 0.000 Nucleated RBC % (auto) 0.0 Sodium 141 Potassium 3.6 D Chloride 108 Carbon Dioxide 24 Anion Gap 13 BUN 16 Creatinine 0.82 Estim Creat Clear Calc 148.3 Estimated GFR > 60 Random Glucose Fasting Glucose 94 Calcium 8.7 Magnesium Iron TIBC % Saturation Unsat Iron Binding Total Bilirubin 0.5 Direct Bilirubin AST 11 ALT 14 Alkaline Phosphatase 55 Total Protein 5.5 L Albumin 3.7 Lipase Urine Color Yellow Urine Appearance Clear Urine pH 8.5 Ur Specific [place] 1.025 Urine Protein Negative Urine Glucose (UA) Negative Urine Ketones Negative Urine Blood Negative Urine Nitrite Negative Ur Leukocyte Esterase Negative Stool Occult Blood COVID-19 ([facility]) COVID-19 Clin Com Blood Type Antibody Screen 03/23/22 05:46 WBC 6.5 RBC 2.33 L Hgb 7.3 L Hct 21.4 L MCV 91.8 MCH 31.3 MCHC 34.1 RDW 12.8 Plt Count 222 MPV 11.9 Immature Gran % (Auto) 0.5 H Neut % (Auto) 64.0 Lymph % (Auto) 28.0 [place] % (Auto) 5.4 Eos % (Auto) 1.5 Baso % (Auto) 0.6 Lymph # (Auto) 1.8 [place] # (Auto) 0.4 Eos # (Auto) 0.1 Baso # (Auto) 0.0 Abs Immat Gran (auto) 0.03 Absolute Neuts (auto) 4.2 Absolute Nucleated RBC 0.000 Nucleated RBC % (auto) 0.0 Sodium Potassium Chloride Carbon Dioxide Anion Gap BUN Creatinine Estim Creat Clear Calc Estimated GFR Random Glucose Fasting Glucose Calcium Magnesium Iron TIBC % Saturation Unsat Iron Binding Total Bilirubin Direct Bilirubin AST ALT Alkaline Phosphatase Total Protein Albumin Lipase Urine Color Urine Appearance Urine pH Ur Specific [place] Urine Protein Urine Glucose (UA) Urine Ketones Urine Blood Urine Nitrite Ur Leukocyte Esterase Stool Occult Blood COVID-19 ([facility]) COVID-19 Clin Com Blood Type Antibody Screen Airway Mallampati Class: I TM Dist: >3cm Neck ROM: Full Loose/Missing/Broken Teeth: No Assessment and Plan Assessment Anesthesia Assessment: Anesthesia Plan Discussed and Chart Reviewed Final Anesthetic Review Family History of Problems with Anesthesia: Unobtainable (Patient is adopted) History of Problems with Anesthesia: No NPO: Yes ASA Class: I and Emergency Final Preanesthetic Review: No Changes in Pt Med Stat, Meds/Allgs Chart Reviewed, Consent Obtained/Reviewed and Anes Risks/Benef Reviewed Patient Risk: Low Procedure Risk: Low Anesthetic Plan Anesthetic Plan: MAC: Disposition: Standard PACU
[2022-03-23] MEDS: Iron Sucrose Complex 200 MG in 0.9 % Sodium Chloride 100 ML 440 MG IV (13:51)
--- NOTE | 2022-03-23 17:12 | PC.NURSE ---
Pt tolerating clear liquids, Dr Bee notified, diet advanced
[2022-03-24] VITALS (12 sets, daily range): BP systolic 111–143; BP diastolic 53–85; PULSE 75–101; RESP 15–18; TEMP 36.4–37.2; O2SAT 98–100; BMI 21.2
[2022-03-24] MEDS: Pantoprazole Sodium 40 MG/10 ML VIAL IVPUSH ×2 (00:29→12:54)
[2022-03-24] MEDS: 0.9 % Sodium Chloride Flush 3 ML SYRINGE IVFLUSH ×4 (00:32→21:59)
[2022-03-24 06:06] LABS: MANUAL DIFF FLAG NO
[2022-03-24 06:28] LABS: Basophils Absolute Auto 0.1 X10*3/uL (0.0-0.2); Basophils Percent Auto 0.5 % (0-2); Eosinophils Absolute Auto 0.1 X10*3/uL (0.0-0.4); Eosinophils Percent Auto 0.7 % (0-4); Imm Gran Abs Auto 0.04 X10*3/uL (0.00-0.03); Imm Gran Pct Auto 0.4 % (0.0-0.4); Lymphocytes Absolute Auto 1.4 X10*3/uL (1.2-4.9); Lymphocytes Percent Auto 13.9 % (20-40); Mean Corpuscular HGB Conc 33.7 g/dl (31.0-36.0); Mean Platelet Volume 11.4 fL (9.4-12.4); Monocytes Absolute Auto 0.6 X10*3/uL (0.1-1.2); Monocytes Percent Auto 6.2 % (2-11); Neutrophils Absolute Auto 7.7 x10*3/uL (2.0-8.3); Neutrophils Percent Auto 78.3 % (45-73); Platelet Count 226 X10*3/uL (160-400); Red Blood Count 2.13 X10*6/uL (4.60-5.80); Red Cell Distribution Width 13.1 % (11.0-16.0); White Blood Count 9.9 X10*3/uL (4.8-10.8)
[2022-03-24 06:44] LABS: Alanine Aminotransferase 13 U/L (0-40); Albumin Level 3.4 g/dL (3.5-5.0); Alkaline Phosphatase 54 U/L (39-117); Anion Gap 13 (12-20); Aspartate Amino Transferase 13 U/L (5-37); Bilirubin Total 0.5 mg/dL (0.0-1.0); Blood Urea Nitrogen 6 mg/dL (9-16); Calcium 8.5 mg/dL (8.4-10.2); Carbon Dioxide 25 mmol/L (22-29); Chloride 108 mmol/L (96-108); Creatinine Clr Calc Pharmacy 153.9; Estimated Glomerular Filt Rate > 60; Glucose Fasting 95 mg/dL (60-99); Potassium 3.7 mmol/L (3.3-5.1); Sodium 142 mmol/L (135-145); Total Protein 5.1 g/dL (6.5-8.0)
--- NOTE | 2022-03-24 06:45 | HO.POSTANES ---
Post Anesthesia Evaluation Post Anesthesia Evaluation Vital Signs: Vital Signs Temp Pulse Resp BP Pulse Ox O2 Del Method 03/24/22 04:00 97.5 F 76 17 111/53 L 100 Room Air 03/23/22 23:40 97.5 F 67 17 134/63 100 Room Air 03/23/22 19:25 98.5 F 90 17 130/67 100 Room Air Anesthesia: Monitored Mental Status: Awake Pain Control: Satisfactory Nausea/Vomiting: None Hydration: Adequate Anesthesia-Related Issues: No Anes. Related Issues
[2022-03-24] MEDS: Dextrose 5 % and 0.45 % NaCl 1,000 ML 100 ML IVCONT (06:46)
[2022-03-24 07:52] LABS: Hematocrit 19.6 % (42.0-52.0)
[2022-03-24 08:08] LABS: Vitamin B12 284 pg/mL (200-900)
[2022-03-24 08:39] LABS: Hemoglobin 6.6 g/dl (14.0-18.0)
[2022-03-24] MEDS: Acetaminophen 325 MG TABLET 650 MG PO ×2 (12:54→16:54)
--- NOTE | 2022-03-24 15:55 | HO.PM.IMPN ---
Subjective Subjective Date of Service: 03/24/22 Interval History: no vomiting or dark stools overnight. Ambulating without symptoms Review of Systems denies chest pain Denies shortness of breath Denies nausea vomiting diarrhea denies fever chills Physical Exam Vital Signs: Vital Signs: Last Vital Signs Temp 98.3 F 03/24/22 15:28 Pulse 90 03/24/22 15:28 Resp 15 03/24/22 15:28 BP 139/63 03/24/22 15:28 Pulse Ox 99 03/24/22 15:28 O2 Del Method 03/24/22 15:28 BMI result Body Mass Index 21.2 Const: Other: no acute distress Resp: Other: clear to auscultation bilaterally no rales rhonchi or wheezes Cardio: Other: no S4; positive S1-S2; no S3 murmurs rubs gallops GI: Other: soft nontender nondistended with normoactive bowel sounds Extrem: Other: no edema bilaterally Objective Data Active Medications Acetaminophen (Acetaminophen 325 Mg Tablet) 650 mg PO Q4H PRN PRN Reason: Headache Last Admin: 03/24/22 12:54 Dose: 650 mg Documented By: VERONICA Pantoprazole Sodium (Pantoprazole Sodium 40 Mg/10 Ml Vial) 40 mg IVPUSH Q12H [facility] Last Admin: 03/24/22 12:54 Dose: 40 mg Documented By: VERONICA Pharmacy Consult (Consult Rx Perform Med Rec) 1 each MISCELLANE ONCE PRN PRN Reason: Consult order Sodium Chloride (0.9 % Sodium Chloride Flush 3 Ml Syringe) 3 ml IVFLUSH QSHIFT [facility] Last Admin: 03/24/22 08:14 Dose: 3 ml Documented By: VERONICA Labs CBC & Chem 7: 03/24/22 05:20 03/24/22 05:20 Labs: Laboratory Results - last 24 hr 03/22/22 03/22/22 03/24/22 11:39 12:08 05:20 MCV 92.0 MCH 31.0 MCHC 33.7 RDW 13.1 Plt Count 226 MPV 11.4 Immature Gran % (Auto) 0.4 Neut % (Auto) 78.3 H Lymph % (Auto) 13.9 L [place] % (Auto) 6.2 Eos % (Auto) 0.7 Baso % (Auto) 0.5 Lymph # (Auto) 1.4 [place] # (Auto) 0.6 Eos # (Auto) 0.1 Baso # (Auto) 0.1 Abs Immat Gran (auto) 0.04 H Absolute Neuts (auto) 7.7 Absolute Nucleated RBC 0.000 Nucleated RBC % (auto) 0.0 Smear Path Review Anion Gap Estim Creat Clear Calc Estimated GFR Fasting Glucose Calcium Total Bilirubin AST ALT Alkaline Phosphatase Total Protein Albumin Vitamin B12 284 Folate 6.0 Blood Type O Positive Antibody Screen NEGATIVE Crossmatch See Detail 03/24/22 05:20 MCV MCH MCHC RDW Plt Count MPV Immature Gran % (Auto) Neut % (Auto) Lymph % (Auto) [place] % (Auto) Eos % (Auto) Baso % (Auto) Lymph # (Auto) [place] # (Auto) Eos # (Auto) Baso # (Auto) Abs Immat Gran (auto) Absolute Neuts (auto) Absolute Nucleated RBC Nucleated RBC % (auto) Smear Path Review Anion Gap 13 Estim Creat Clear Calc 153.9 Estimated GFR > 60 Fasting Glucose 95 Calcium 8.5 Total Bilirubin 0.5 AST 13 ALT 13 Alkaline Phosphatase 54 Total Protein 5.1 L Albumin 3.4 L Vitamin B12 Folate Blood Type Antibody Screen Crossmatch Assessment and Plan (1) Anemia: Status: Acute (2) UGIB (upper gastrointestinal bleed): Status: Acute Plan 22-year-old male presents with several days of coffee-ground emesis and black stool.? Admits to daily NSAID use secondary to chronic headaches.? Also admits purging. . .? Has counselor for same.? No suicidal ideations 1.Anemia - transfused 2 units without issue - serial hemoglobins 2.UGIB - EGD reviewed - IV pantoprazole q.12 hours - advance diet ?full code ?ambulation will require ongoing hospitalization for monitoring anemia and for transfusions if necessary ? Quality Stroke Does the patient have a stroke diagnosis?: No VTE Prior VTE?: No VTE Risk Level:: Medical - low VTE Device Contraindication: Treatment Not Indicated VTE Drug Contraindication: Treatment Not Indicated
--- NOTE | 2022-03-24 19:24 | PC.NURSE ---
Pt received 2 units PRBCS, tolerated well. Diet advanced to regular, pt tolerating well. Denies n/v. Pt has not had any BMs today.
[2022-03-24 19:26] LABS: MANUAL DIFF FLAG NO
[2022-03-24 19:29] LABS: Basophils Percent Auto 0.3 % (0-2); Eosinophils Percent Auto 0.4 % (0-4); Hematocrit 26.3 % (42.0-52.0); Hemoglobin 9.1 g/dl (14.0-18.0); Imm Gran Abs Auto 0.05 X10*3/uL (0.00-0.03); Imm Gran Pct Auto 0.5 % (0.0-0.4); Lymphocytes Absolute Auto 0.5 X10*3/uL (1.2-4.9); Lymphocytes Percent Auto 5.4 % (20-40); Mean Corpuscular HGB Conc 34.6 g/dl (31.0-36.0); Mean Corpuscular Hemoglobin 30.5 pg (27.0-33.0); Mean Corpuscular Volume 88.3 fL (80.0-98.0); Mean Platelet Volume 11.1 fL (9.4-12.4); Monocytes Absolute Auto 0.8 X10*3/uL (0.1-1.2); Monocytes Percent Auto 8.2 % (2-11); Neutrophils Percent Auto 85.2 % (45-73); Platelet Count 256 X10*3/uL (160-400); Red Blood Count 2.98 X10*6/uL (4.60-5.80); Red Cell Distribution Width 14.8 % (11.0-16.0); White Blood Count 9.4 X10*3/uL (4.8-10.8)
[2022-03-25] MEDS: Pantoprazole Sodium 40 MG/10 ML VIAL IVPUSH (00:33)
[2022-03-25 03:50] VITALS: BP 129/58; PULSE 80; RESP 17; TEMP 36.7; O2SAT 97
[2022-03-25 06:34] LABS: MANUAL DIFF FLAG NO
[2022-03-25 06:42] LABS: Basophils Percent Auto 0.6 % (0-2); Eosinophils Percent Auto 0.6 % (0-4); Hematocrit 25.5 % (42.0-52.0); Hemoglobin 8.6 g/dl (14.0-18.0); Imm Gran Abs Auto 0.03 X10*3/uL (0.00-0.03); Imm Gran Pct Auto 0.5 % (0.0-0.4); Lymphocytes Absolute Auto 0.9 X10*3/uL (1.2-4.9); Lymphocytes Percent Auto 13.8 % (20-40); Mean Corpuscular HGB Conc 33.7 g/dl (31.0-36.0); Mean Corpuscular Volume 88.9 fL (80.0-98.0); Mean Platelet Volume 11.5 fL (9.4-12.4); Monocytes Absolute Auto 0.8 X10*3/uL (0.1-1.2); Monocytes Percent Auto 12.2 % (2-11); Neutrophils Absolute Auto 4.6 x10*3/uL (2.0-8.3); Neutrophils Percent Auto 72.3 % (45-73); Platelet Count 254 X10*3/uL (160-400); Red Blood Count 2.87 X10*6/uL (4.60-5.80); White Blood Count 6.4 X10*3/uL (4.8-10.8)
[2022-03-25 07:04] LABS: Alanine Aminotransferase 19 U/L (0-40); Albumin Level 3.7 g/dL (3.5-5.0); Alkaline Phosphatase 78 U/L (39-117); Anion Gap 13 (12-20); Aspartate Amino Transferase 19 U/L (5-37); Bilirubin Total 0.4 mg/dL (0.0-1.0); Blood Urea Nitrogen 8 mg/dL (9-16); Calcium 8.5 mg/dL (8.4-10.2); Carbon Dioxide 25 mmol/L (22-29); Chloride 109 mmol/L (96-108); Creatinine Clr Calc Pharmacy 144.7; Estimated Glomerular Filt Rate > 60; Glucose Fasting 103 mg/dL (60-99); Potassium 3.9 mmol/L (3.3-5.1); Sodium 143 mmol/L (135-145); Total Protein 5.6 g/dL (6.5-8.0)
[2022-03-25 08:00] VITALS: BP 142/78; PULSE 74; RESP 18; TEMP 37.1; O2SAT 100
[2022-03-25] MEDS: 0.9 % Sodium Chloride Flush 3 ML SYRINGE IVFLUSH (08:53)
--- NOTE | 2022-03-25 09:19 | P.CDIC_ITS ---
CDI Concurrent Query Documentation Clarification: PHYSICIAN'S DOCUMENTATION REQUEST Date of Query: 03/25/22919 Patient Name: Junior Barton Admit Date: 03/22/22 Dear Doctor, A review of the medical record indicates additional documentation may be needed. Please review below and update the documentation accordingly. Clinical Indicators: Is there a diagnosis that correlates with these lab findings below: Risk Factors/Clinical Indicators/Treatments LABS: Hgb - 6.6 on 03/24 Hct - 19.6 on 03/24 2 units of RBCs transfused on 03/24 Patient with UGIB Based on the above, could you clarify in the Progress Notes which of the following is the most likely type of anemia you are evaluating, treating, and/or monitoring? * Acute blood loss anemia * Acute blood loss anemia with baseline chronic anemia (specify type) * Acute iron deficiency anemia due to blood loss * Acute on chronic iron deficiency anemia due to blood loss * Other ? please specify * Unable to determine Use of terms such as suspected, likely, concern for, or probable (associated with a specific diagnosis that is being evaluated, monitored, or treated as if it exists) are acceptable and can be coded in the inpatient setting, when documented at the time of discharge. Thank you, Renea Rey MS, RN, CCRN Extension: [phone] Please use your independent medical judgment in providing your response. THIS QUERY IS PART OF THE PERMANENT MEDICAL RECORD Provider Response: Other Other Diagnosis: acute blood loss anemia
[2022-03-25 11:03] VITALS: BP 129/63; PULSE 87; RESP 18; TEMP 36.9; O2SAT 100
--- NOTE | 2022-03-25 11:43 | MHC.CLN ---
F/U DIET ADVANCED TO REGULAR. APPEARS TO BE TOLERATING DIET, EATING WELL. CONTINUE ENSURE TID. PROVIDES ADDITIONAL 1050 KCAL, 60 G PROTEIN. FOLLOW FOR INTAKE AND DIET TOLERANCE.
--- NOTE | 2022-03-25 12:13 | PM.DS ---
DS: Providers Provider Date of Service: 03/25/22 Date of admission: 03/22/22 14:39 Date of discharge: 03/25/22 Primary care physician: None Physician Consults: 03/22/22 14:41 Consult to Gastroenterology Stat Consulting Provider: Nahum Andersen Reason for consultation: GIB Has provider been notified: Yes DS: Diagnosis Discharge Diagnosis (1) Anemia: Status: Acute (2) UGIB (upper gastrointestinal bleed): Status: Acute DS: Summary Hospital Course Hospital Course: 22-year-old male with no significant past medical history presenting to the ED complaining black stool since Wednesday and 1 episode black/coffee-ground emesis this morning.? Reports associated generalized fatigue/weakness, lightheadedness and presyncope.? Denies taking anticoagulation.? Does report regular NSAID use, and binge purging, and occasional/social ETOH, denies being daily drinker.? Reports mild abdominal discomfort.? Denies diarrhea, dysuria/hematuria, CP/SOB. Hospital Course Admitted to general medical floor on IV ppi. On 03/23/2022 patient was seen in consultation by GI and underwent an EGD which demonstrated a 10 mm duodenal ulcer force grade 3. Patient was continued on IV PPI however the next morning hemoglobin dropped to 6.6. He was transfused 2 units of packed red cells with appropriate increase in his hemoglobin. Over the last 24 hours he has tolerated a regular diet and has had a normal bowel movement. At this time he be discharged on PPI and followed up with GI Time Spent with Patient Time attestation: Total time spent providing and/or coordinating discharge services: Discharge coordination time: Greater than 30 minutes Quality: Safe Use of Opioids Does Pt have an Active Cancer Diagnosis on the Problem List?: No Quality: Stroke Does the patient have a stroke diagnosis?: No Physical Exam Vital Signs: Vital Signs: Last Vital Signs Temp 98.4 F 03/25/22 11:03 Pulse 87 03/25/22 11:03 Resp 18 03/25/22 11:03 BP 129/63 03/25/22 11:03 Pulse Ox 100 03/25/22 11:03 O2 Del Method 03/25/22 11:03 BMI result Body Mass Index 21.2 Const: Other: no acute distress Resp: Other: clear to auscultation bilaterally no rales rhonchi or wheezes Cardio: Other: no S4; positive S1-S2; no S3 murmurs rubs gallops GI: Other: soft nontender nondistended with normoactive bowel sounds Extrem: Other: no edema bilaterally DS: Data Data Completed and Pending Pending studies at discharge: Pending at discharge 03/23/22 11:49 Surgical [PTH] Routine Labs on day of discharge: Laboratory Results - last 24 hr 03/22/22 03/24/22 03/24/22 12:08 05:20 18:58 WBC 9.4 RBC 2.98 L D Hgb 9.1 L D Hct 26.3 L D MCV 88.3 MCH 30.5 MCHC 34.6 RDW 14.8 Plt Count 256 MPV 11.1 Immature Gran % (Auto) 0.5 H Neut % (Auto) 85.2 H Lymph % (Auto) 5.4 L [place] % (Auto) 8.2 Eos % (Auto) 0.4 Baso % (Auto) 0.3 Lymph # (Auto) 0.5 L [place] # (Auto) 0.8 Eos # (Auto) 0.0 Baso # (Auto) 0.0 Abs Immat Gran (auto) 0.05 H Absolute Neuts (auto) 8.0 Absolute Nucleated RBC 0.000 Nucleated RBC % (auto) 0.0 Smear Path Review Sodium Potassium Chloride Carbon Dioxide Anion Gap BUN Creatinine Estim Creat Clear Calc Estimated GFR Fasting Glucose Calcium Total Bilirubin AST ALT Alkaline Phosphatase Total Protein Albumin Crossmatch See Detail 03/25/22 03/25/22 06:01 06:01 WBC 6.4 RBC 2.87 L Hgb 8.6 L Hct 25.5 L MCV 88.9 MCH 30.0 MCHC 33.7 RDW 15.0 Plt Count 254 MPV 11.5 Immature Gran % (Auto) 0.5 H Neut % (Auto) 72.3 Lymph % (Auto) 13.8 L [place] % (Auto) 12.2 H Eos % (Auto) 0.6 Baso % (Auto) 0.6 Lymph # (Auto) 0.9 L [place] # (Auto) 0.8 Eos # (Auto) 0.0 Baso # (Auto) 0.0 Abs Immat Gran (auto) 0.03 Absolute Neuts (auto) 4.6 Absolute Nucleated RBC 0.000 Nucleated RBC % (auto) 0.0 Smear Path Review Sodium 143 Potassium 3.9 Chloride 109 H Carbon Dioxide 25 Anion Gap 13 BUN 8 L Creatinine 0.84 Estim Creat Clear Calc 144.7 Estimated GFR > 60 Fasting Glucose 103 H Calcium 8.5 Total Bilirubin 0.4 AST 19 D ALT 19 Alkaline Phosphatase 78 D Total Protein 5.6 L Albumin 3.7 Crossmatch Discharge Plan Discharge Patient Disposition: Home, Self-Care Discharge Diagnosis: Upper GI Bleed Referrals: Physician,None [Primary Care Provider] - 1 Week Discharge Medications: New pantoprazole [Protonix] 40 mg tablet,delayed release (DR/EC) 40 mg PO BID Qty: 60 0RF nortriptyline 10 mg capsule 10 mg PO BEDTIME Qty: 30 0RF [id number] [Fioricet] 50-300-40 mg capsule 1 cap PO Q8H PRN (Reason: pain) Qty: 30 0RF Discontinued ibuprofen 200 mg Tablet 400 mg PO Q8H PRN (Reason: Headache) Discharge Orders: Discharge Order (Routine); Ordered 03/25/22 Ordered By: Benigno Bee Diet: Advance to usual diet Activity on Discharge: As tolerated Stand Alone Forms: Patient Portal Discharge page Care Plan Goals: avoid Motrin and other nonsteroidals Health Concerns: take Protonix twice daily Plan of Treatment: followed up with GI as scheduled Assessment: as per discharge summar
== END 2022-03-25 12:57 | disposition home or self-care (01) | DRG 378 ==
LOC: HO.ED 13:28 → HO.EDOVER 14:44 → HO.S3 19:58
PROVIDERS: Internal Medicine Gastroenterology; Physician Assistant; Admitting Provider Hospitalist; Emergency Provider Emergency Medicine; Visit Provider Hospitalist
PROC: 0DJ08ZZ Inspection of Upper Intestinal Tract, Via Natural or Artificial Opening Endoscopic (ICD-10-PCS; CPT 43235; principal; 2022-03-23 12:00)
DX: K29.81 Duodenitis with bleeding (principal); D62 Acute posthemorrhagic anemia; F50.89 Other specified eating disorder; Z68.21 Body mass index [BMI] 21.0-21.9, adult; K26.4 Chronic or unspecified duodenal ulcer with hemorrhage; K44.9 Diaphragmatic hernia without obstruction or gangrene; Z20.822 Contact with and (suspected) exposure to COVID-19; Z87.891 Personal history of nicotine dependence; Z79.1 Long term (current) use of non-steroidal anti-inflammatories (NSAID); Z79.899 Other long term (current) drug therapy
CPT/HCPCS: 36415; 80048; 80053; 80076; 81003; 82272; 82607; 82746; 83540; 83690; 83735; 85025; 86850; 86900; 86901; 86923; 87635; 88305; 88342; 93005; 99285; J1756; J2270; P9016